=== PATIENT | male | born 1950 | race African-American/Black ===

== ENCOUNTER 2019-02-16 10:17 | Inpatient (IN) | payer OTHER | END 2019-02-25 18:12 | disposition home health service (06) | LOC: CENTRAL 02-25 05:42 → ER 10:17 → TELE 10:18 → TELE-CENTR 18:51 | PROC: 0W993ZZ Drainage of Right Pleural Cavity, Percutaneous Approach (ICD-10-PCS; principal; ~2019-02-16) | DX: I50.33 Acute on chronic diastolic (congestive) heart failure (principal); N17.0 Acute kidney failure with tubular necrosis; I13.0 Hypertensive heart and chronic kidney disease with heart failure and stage 1 through stage 4 chronic kidney disease, or unspecified chronic kidney disease; E87.0 Hyperosmolality and hypernatremia; N18.4 Chronic kidney disease, stage 4 (severe); E11.22 Type 2 diabetes mellitus with diabetic chronic kidney disease; N28.1 Cyst of kidney, acquired; D64.9 Anemia, unspecified; F41.9 Anxiety disorder, unspecified; R31.0 Gross hematuria ==

== ENCOUNTER 2019-02-27 13:28 | Inpatient (IN) | payer OTHER ==
[~2019-02-27] VITALS: Ht 175.3 cm; Wt 95.2 kg
[~2019-02-27 13:28] MED LIST: ALPR1TAB2 PO; AMLO5TAB15 PO; DOXYCYCLINE 100MG/250ML 250 ML IV SCH; FURO1TAB33 PO; GLIP5TAB12 PO; METO25TA5 PO; MIN25T PO; MONT10TA34 PO
[2019-02-27] MEDS ORDERED: FUROSEMIDE 40 MG/4 ML VIAL IV ONE ×2 (14:45→21:00)
[2019-02-27] MEDS ORDERED: MORPHINE SULF INJ 2 MG/ML SYRINGE 1ML IV ONE (15:00)
[2019-02-27 15:33] LABS: Basophils # (auto) 0.1 uL; Eosinophils # (auto) 0.5 uL; Hemoglobin 12.7 g/dL (13.5-17.5); Monocytes # (auto) 0.7 uL; Nucleated Red Blood Cells % 0.1 %; White Blood Cell 4.7 10^3/uL (4.4-10.8)
[2019-02-27 15:35] LABS: Basophils % (auto) 1.5 % (0.0-2.0); Eosinophils % (auto) 11.6 % (0.0-7.0); Hematocrit 40.3 % (41.0-53.0); Lymphocytes # (auto) 0.7 uL; Lymphocytes % (auto) 15.4 % (10.0-50.0); Mean Corpuscular Hemoglobin 26.4 pg (28.0-32.0); Mean Corpuscular Hgb Conc. 31.5 g/dL (32.0-36.0); Mean Corpuscular Volume 83.9 fL (80.0-100.0); Monocytes % (auto) 14.7 % (0.0-12.0); Neutrophils # (auto) 2.7 uL; Neutrophils % (auto) 56.8 % (37.0-80.0); Platelet Count (auto) 243 10^3/uL (140-450); Red Cell Distribution Width 14.7 % (11.8-14.3)
[2019-02-27 15:48] LABS: Albumin 2.6 g/dL (3.4-5.0); Anion Gap 5 (5-15); Blood Urea Nitrogen 56 mg/dL (7-18); Calcium 8.6 mg/dL (8.5-10.1); Carbon Dioxide 29 mmol/L (21-32); Chloride 112 mmol/L (98-107); Glucose 80 mg/dL (74-106); Potassium 4.4 mmol/L (3.5-5.1); Sodium 146 mmol/L (136-145)
[2019-02-27 15:53] LABS: INR 0.93 (0.9-1.15); Partial Thromboplastin Time 32.2 sec (23.64-32.05)
[2019-02-27 15:54] LABS: Alanine Aminotransferase 38 U/L (16-61); Alkaline Phosphatase 74 U/L (45-117); Aspartate Aminotransferase 35 U/L (15-37); BUN/Creatinine Ratio 16.7; Bilirubin, Total 0.2 mg/dL (0.2-1.0); GFR African American 24 mL/min; GFR Non-African American 20 mL/min
[2019-02-27] MEDS ORDERED: AZITHROMYCIN 500MG/ 250ML 250 ML IV ONE (17:15)
[2019-02-27] MEDS ORDERED: cefTRIAXone 1GM/50ML D5W 50 ML IV ONE (17:15)
[2019-02-27 17:42] LABS: Urine Bacteria FEW /hpf (None Seen); Urine Blood 3+ /uL (Negative); Urine Mucus FEW (None Seen); Urine WBC 30 /hpf (0 - 3)
[2019-02-27] MEDS ORDERED: ALBUTEROL SULF 2.5 MG/0.5ML(0.5%) NEB SOLN NEB PRN (21:00)
[2019-02-27] MEDS ORDERED: DOCUSATE SOD 100 MG CAP PO PRN (21:00)
[2019-02-27] MEDS ORDERED: TEMAZEPAM 15 MG CAP PO PRN (21:00)
[2019-02-27] MEDS ORDERED: ONDANSETRON HCL 4 MG/2 ML VIAL IV PRN (21:00)
[2019-02-27] MEDS ORDERED: ACETAMINOPHEN 500 MG TAB PO PRN (21:00)
[2019-02-27] MEDS ORDERED: DEXTROSE (50%) 50ML SYRG IV PRN (21:15)
[2019-02-27] MEDS ORDERED: METOPROLOL TARTRATE 25 MG TAB PO SCH (22:00)
[2019-02-27] MEDS: InsuLIN REG 1unit/0.01ml Soln (100units/ml) SC SCH (22:00)
[2019-02-27] MEDS: ACCU-CHEK COMFORT CURVE STRIP VI SCH (22:25)
[2019-02-27] MEDS: METOPROLOL TARTRATE 25 MG TAB PO SCH (22:26)
[2019-02-27] MEDS: MONTELUKAST SODIUM 10 MG TAB PO SCH (22:26)
--- NOTE | 2019-02-27 22:30 | NUR ---
Respiratory note: PT SEEN AND ASSESSED FOR PRN MED NEB TX AT 2230 IN ER BED 19. TX NOT INDICATED AT THIS TIME. PT DENIES ANY SOB AND STATED HIS BREATHING FELT GOOD. BREATH SOUNDS WERE DIMINISHED BILATERALLY. PT AWARE TO CALL FOR RT IF ANY DISTRESS OCCURS. HR 101 RR 16 POX 98% ON 2L NASAL CANNULA.
--- NOTE | 2019-02-27 23:00 | NUR ---
PATIENT ADMITTED TO UNIT Patient admitted to unit from ER via stretcher. Patient was safely transferred to bed. Patient is receiving 2L O2 via N.C. Patient is A&O X's 4 with no s/s of distress noted. Educated patient on POC/oriented patient to unit (call light/TV/phone/visiting hours)/ and to use call light when in need of any assistance. Patient verbalized understanding. Hitchcock is in place. No kinks noted. It is hanging below level of bladder. Bed is in lowest/locked position with side rails up X's 2 and call light is within reach of patient. He is Tele box #6. Will continue to monitor for changes and round hourly/PRN. All questions answered at this time. Called and spoke to his Jessica-, she was updated on POC and all questions were answered.
[2019-02-28] VITALS (8 sets, daily range): BP systolic 125–147; BP diastolic 67–86
--- NOTE | 2019-02-28 00:29 | NUR ---
PAGED HOSPITALIST Patient c/o increased pain with movement to scrotum. Will page for pain medication.
--- NOTE | 2019-02-28 00:32 | NUR ---
RECEIVED CALL BACK FROM HOSPITALIST New orders given. Will implement
--- NOTE | 2019-02-28 02:39 | NUR ---
[facility] SWAB Sent via bullet system
[2019-02-28] MEDS: PANTOPRAZOLE 40 MG TAB PO SCH (06:09)
--- NOTE | 2019-02-28 06:30 | NUR ---
LOW BLOOD GLUCOSE it was at 47. Patient was asymptomatic. He said that this happens to him a lot but it may because he did not eat a lot yesterday down in the ER. He is A&O X's 4. No distress noted. He was given cranberry and apple juice and a sandwich. will recheck blood glucose
[2019-02-28] MEDS: InsuLIN REG 1unit/0.01ml Soln (100units/ml) SC SCH ×4 (06:55→21:34)
[2019-02-28] MEDS: ACCU-CHEK COMFORT CURVE STRIP VI SCH ×4 (06:55→22:00)
[2019-02-28 06:57] LABS: Basophils # (auto) 0.1 uL; Eosinophils # (auto) 0.5 uL; Eosinophils % (auto) 10.3 % (0.0-7.0); Hemoglobin 11.7 g/dL (13.5-17.5); Neutrophils # (auto) 2.6 uL
--- NOTE | 2019-02-28 06:58 | NUR ---
BLOOD GLUCOSE RECHECK 86
[2019-02-28 06:59] LABS: Basophils % (auto) 1.3 % (0.0-2.0); Hematocrit 37.2 % (41.0-53.0); Mean Corpuscular Hemoglobin 26.3 pg (28.0-32.0); Mean Corpuscular Hgb Conc. 31.6 g/dL (32.0-36.0); Mean Corpuscular Volume 83.2 fL (80.0-100.0); Monocytes # (auto) 0.9 uL; Monocytes % (auto) 17.1 % (0.0-12.0); Neutrophils % (auto) 52.3 % (37.0-80.0); Nucleated Red Blood Cells % 0.1 %; Platelet Count (auto) 252 10^3/uL (140-450); Red Blood Cells 4.47 10^6/uL (4.5-5.90); Red Cell Distribution Width 14.9 % (11.8-14.3)
[2019-02-28 07:16] LABS: BUN/Creatinine Ratio 16.7; Calcium 8.5 mg/dL (8.5-10.1); Potassium 4.2 mmol/L (3.5-5.1)
--- NOTE | 2019-02-28 07:30 | NUR ---
Opening Shift Note Assumed care of patient, awake and alert. No S/S of distress/SOB or pain. Instructed on POC and to call for assist PRN, will continue to monitor for changes Q1hr and PRN. Bed in low and locked position, rails up x3, no-slip socks on.
[2019-02-28] MEDS ORDERED: cefTRIAXone 1GM/50ML D5W 50 ML IV SCH (09:00)
[2019-02-28] MEDS: METOPROLOL TARTRATE 25 MG TAB PO SCH ×2 (09:20→22:00)
[2019-02-28] MEDS: amLODIPine BESYLATE 5 MG TAB PO SCH (09:20)
[2019-02-28] MEDS: LEVOFLOXACIN 500MG 100 ML IV SCH (09:21)
[2019-02-28] MEDS ORDERED: FUROSEMIDE 40 MG/4 ML VIAL IV SCH (10:00)
--- NOTE | 2019-02-28 10:45 | NUR ---
DR DAY AT BEDSIDE
--- NOTE | 2019-02-28 11:54 | NUR ---
Respiratory note: PATIENT ASSESS FOR PRN MED-NEB TX; MED-NEB NOT INDICATED AT THIS TIME PATIENT DENIES NEED AND IS SHOWING NO SIGNS OF RESPIRATORY DISTRESS. HE WAS INSTRUCTED TO CALL FOR RT IF HE FELT THE NEED FOR TX AT A LATER TIME.
[2019-02-28] MEDS: ALBUMIN 25% 100 ML IV SCH ×2 (13:00→14:01)
[2019-02-28] MEDS: HYDROcodone-ACET 5/325MG TAB PO PRN (13:58)
--- NOTE | 2019-02-28 15:00 | NUR ---
DR JOSEPH AT BEDSIDE NEW CONSULTS ADDED
--- NOTE | 2019-02-28 15:35 | NUR ---
PAUL CARDONA AT BEDSIDE
[2019-02-28] MEDS: ALPRAZolam 0.5 MG TAB PO PRN (16:31)
[2019-02-28] MEDS: BUMETANIDE 1mg/4ml VIAL (0.25mg/ml) IV SCH (17:49)
--- NOTE | 2019-02-28 18:39 | NUR ---
Respiratory note: NO PRN TX GIVEN AT THIS TIME, NOT INDICATED. PT DENIES SOB, STATES HE TAKES INHALERS AT HOME NEEDED. SPO2 96% ON 2L N/C, HR HR 95, HR 18. PT AWARE TO CALL IF HE BECOMES SOB.
--- NOTE | 2019-02-28 20:35 | NUR ---
PATIENT REQUESTS TO BE CHANGED FROM ROOM. PATIENT STATES THAT HE HEARD PATIENT IN BED B TALKING WITH SOMEONE ON THE PHONE AND THAT HE OVERHEARD THAT PATIENT B HAS PNA. PATIENT A WAITED FOR PATIENT B TO FINISH TALKING ON THE PHONE AND ASKED HIM IF HE HAS PNA AND PATIENT B CONFIRMED THAT HE HAS PNA. PATIENT A IS UPSET THAT HE IS IN THE SAME ROOM A PATIENT WITH A CONTAGIOUS DISEASE AND WANTS TO BE CHANGED ROOMS. PER CHARGE NURSE RADHA IS IT IS OK CHANGE PATIENT A TO DIFFERENT ROOM IF AVAILABLE.
--- NOTE | 2019-02-28 20:46 | NUR ---
PATIENT TRANSFERRED TO ROOM 245 B PATIENT ASKING NURSE [employer]ION[employer] SYSTEMS TECHNICIAN NADEGE DURING TRANSFER IF SHE IS AWARE OF THE HEALTH CONDITIONS IN ROOM 245A. NADEGE DIRECTED HIM TO ASK HIS PRIMARY RN. I INFORMED PATIENT THAT PATIENTS WITH CONTAGIOUS INFECTIONS ARE ISOLATED.
[2019-02-28] MEDS: MONTELUKAST SODIUM 10 MG TAB PO SCH (22:00)
--- NOTE | 2019-03-01 00:23 | NUR ---
BLOOD SUGAR CHECK PER PATIENT REQUEST. BS 95. PATIENT STATED THAT HE IS NOT FEELING SIGNS OF LOW OR HIGH BLOOD SUGAR BUT STATES THAT HE IS NERVOUS THAT HIS BLOOD SUGAR WILL DROP IN HIS SLEEP. PATIENT AGREED TO TRY TO SLEEP AND RELAX AND WILL RECHECK HIS SUGAR AT 0400.
[2019-03-01 05:00] VITALS: BP_SYST 122; BP_DIAS 72; BP_DIAS 77
[2019-03-01] MEDS: InsuLIN REG 1unit/0.01ml Soln (100units/ml) SC SCH ×4 (05:34→22:00)
[2019-03-01] MEDS: ACCU-CHEK COMFORT CURVE STRIP VI SCH ×4 (05:34→22:04)
--- NOTE | 2019-03-01 05:50 | NUR ---
Respiratory note: ROUTINE PRN TX ASSESSMENT. HR 81, RR 20, POX 97% ON RA, BREATH SOUNDS ARE CLEAR. NO SOB OR DISTRESS NOTED. PT WAS NOTIFY TO HAVE RT PAGE FOR MN TX.
[2019-03-01] MEDS: PANTOPRAZOLE 40 MG TAB PO SCH (06:31)
[2019-03-01] MEDS: BUMETANIDE 1mg/4ml VIAL (0.25mg/ml) IV SCH ×2 (06:31→17:57)
--- NOTE | 2019-03-01 07:02 | NUR ---
CLOSING NOTE NOC SHIFT PATIENT IS COMFORTABLE IN BED, NO S/SX OF DISTRESS, SOB OR PAIN. PATIENT REQUESTING FUN[employer] CREAM FOR ITCH IN LOWER LEGS; WILL ENDORSE TO DAY SHIFT NURSE.
--- NOTE | 2019-03-01 07:20 | NUR ---
Opening Shift Note Assumed care of patient, awake and alert. No S/S of distress/SOB or pain. Instructed on POC and to call for assist PRN, will continue to monitor for changes Q1hr and PRN. Bed locked in lowest position with two side rails up and call light in reach.
[2019-03-01 07:24] LABS: Hematocrit 35.8 % (41.0-53.0); Hemoglobin 11.3 g/dL (13.5-17.5); Mean Corpuscular Hemoglobin 26.1 pg (28.0-32.0); Mean Corpuscular Hgb Conc. 31.4 g/dL (32.0-36.0); Platelet Count (auto) 237 10^3/uL (140-450); Red Blood Cells 4.31 10^6/uL (4.5-5.90); Red Cell Distribution Width 14.6 % (11.8-14.3); White Blood Cell 4.7 10^3/uL (4.4-10.8)
[2019-03-01 07:27] LABS: Basophils % (manual) 0 (0.0-2.0); Blast Cells 0; Myelocytes % 0; Promyelocytes % 0; Reactive Lymphocytes 0
[2019-03-01 07:31] LABS: Calcium 8.1 mg/dL (8.5-10.1); Potassium 4.3 mmol/L (3.5-5.1)
[2019-03-01 07:35] LABS: Magnesium 2.6 mg/dL (1.6-2.6)
[2019-03-01 08:00] VITALS: BP 136/76
--- NOTE | 2019-03-01 09:30 | NUR ---
DR BEASLEY ROUNDING, ALL QUESTIONS ANS CONCERNS ANSWERED.
[2019-03-01] MEDS: LEVOFLOXACIN 500MG 100 ML IV SCH (10:19)
[2019-03-01] MEDS: amLODIPine BESYLATE 5 MG TAB PO SCH (10:19)
[2019-03-01] MEDS: METOPROLOL TARTRATE 25 MG TAB PO SCH ×2 (10:20→22:03)
[2019-03-01] MEDS: ALPRAZolam 0.5 MG TAB PO PRN (10:29)
[2019-03-01] MEDS ORDERED: METOLAZONE 5 MG TAB PO ONE (11:00)
[2019-03-01] MEDS: HYDROcodone-ACET 5/325MG TAB PO PRN (12:32)
[2019-03-01 13:00] VITALS: BP 147/81
[2019-03-01 13:28] LABS: Band Neutrophils % (manual) 1; Eosinophils % (manual) 7 (0-7); Lymphocytes % (manual) 28 (10.0-50.0); Metamyelocytes % 1; Monocytes % (manual) 17 (0-12)
--- NOTE | 2019-03-01 14:00 | NUR ---
PT DECLINED P.T. BECAUSE OF PAIN AND SWELLING.
--- NOTE | 2019-03-01 15:20 | NUR ---
SPOKE TO PT JOSE DE JESUS And patient refused PT earlier, due to swelling. Per Jose De Jesus hew will go back in and re assess and let me know what the result is.
[2019-03-01 17:00] VITALS: BP 144/81
--- NOTE | 2019-03-01 20:00 | NUR ---
URINE SENT TO LAB FOR PROTEIN CREATININE ORDER.
--- NOTE | 2019-03-01 21:20 | NUR ---
Respiratory note: PT ASSESSED FOR PRN MED NEB TX. HR 79, RR 16, SPO2 96% ON 2L NC. NO SIGNS OF ANY RESPIRATORY DISTRESS NOTED. ADVISED PT TO CALL IF TX IS NEEDED.
[2019-03-01 21:43] LABS: Protein, Urine 92.5 mg/dL (0.0-11.9)
[2019-03-01 21:58] VITALS: BP 135/82
[2019-03-01] MEDS: MONTELUKAST SODIUM 10 MG TAB PO SCH (22:03)
[2019-03-01 23:52] LABS: Calcium 8.2 mg/dL (8.5-10.1); Potassium 4.3 mmol/L (3.5-5.1)
[2019-03-01 23:54] LABS: BUN/Creatinine Ratio 14.2
[2019-03-02 05:00] VITALS: BP 148/85
[2019-03-02] MEDS: PANTOPRAZOLE 40 MG TAB PO SCH (06:06)
[2019-03-02] MEDS: BUMETANIDE 1mg/4ml VIAL (0.25mg/ml) IV SCH (06:06)
[2019-03-02] MEDS: InsuLIN REG 1unit/0.01ml Soln (100units/ml) SC SCH ×5 (06:07→22:28)
[2019-03-02] MEDS: ACCU-CHEK COMFORT CURVE STRIP VI SCH ×4 (06:07→17:35)
[2019-03-02 06:27] LABS: Hemoglobin 11.2 g/dL (13.5-17.5)
[2019-03-02 06:29] LABS: Hematocrit 35.4 % (41.0-53.0); Mean Corpuscular Hemoglobin 26.4 pg (28.0-32.0); Mean Corpuscular Hgb Conc. 31.7 g/dL (32.0-36.0); Mean Corpuscular Volume 83.3 fL (80.0-100.0); Platelet Count (auto) 243 10^3/uL (140-450); Red Blood Cells 4.26 10^6/uL (4.5-5.90); Red Cell Distribution Width 14.6 % (11.8-14.3); White Blood Cell 5.4 10^3/uL (4.4-10.8)
[2019-03-02 06:30] LABS: Potassium 3.9 mmol/L (3.5-5.1)
[2019-03-02 06:41] LABS: Calcium 8.4 mg/dL (8.5-10.1); Magnesium 2.5 mg/dL (1.6-2.6)
[2019-03-02 06:49] LABS: Basophils % (manual) 0 (0.0-2.0); Blast Cells 0; Metamyelocytes % 0; Myelocytes % 0; Promyelocytes % 0; Reactive Lymphocytes 0
[2019-03-02] MEDS ORDERED: FUROSEMIDE INJECTION 500 MG in D5W 5% 450 ML IV SCH (07:15)
[2019-03-02 08:00] VITALS: BP 151/93
[2019-03-02 08:56] LABS: Band Neutrophils % (manual) 3; Lymphocytes % (manual) 20 (10.0-50.0)
[2019-03-02 08:57] LABS: Monocytes % (manual) 20 (0-12)
[2019-03-02 09:00] VITALS: BP 151/93
[2019-03-02 09:09] LABS: Eosinophils % (manual) 10 (0-7)
[2019-03-02] MEDS: amLODIPine BESYLATE 5 MG TAB PO SCH (09:23)
[2019-03-02] MEDS: METOLAZONE 5 MG TAB PO SCH (09:23)
[2019-03-02] MEDS: METOPROLOL TARTRATE 25 MG TAB PO SCH ×2 (09:24→22:23)
--- NOTE | 2019-03-02 09:42 | NUR ---
PATIENT AMBULATED WITH PT JERRY TO THE DOOR WAY AND BACK. PER JERRY PATIENT IS OK TO MAKE IT HOME.
[2019-03-02 10:58] LABS: BUN/Creatinine Ratio 14.1; Calcium 8.4 mg/dL (8.5-10.1); Potassium 4.1 mmol/L (3.5-5.1)
--- NOTE | 2019-03-02 11:10 | NUR ---
Respiratory note: PT ASSESSED FOR PRN MED NEB TX, NO TX DESIRED AT THIS TIME NOR INDICATED. PT DENIES SOB OR DIFF BREATHING, NO DISTRESS NOTED. HR 86 RR 16 SPO2 98% ON 2.5L N/C BREATH SOUNDS ARE DIMINISHED T/O. PT AND RN AWARE TO HAVE RT PAGED IF NEEDED.
--- NOTE | 2019-03-02 12:41 | NUR ---
Nutrition Assessment Notes please see attached link for complete assessment Est. Needs IBW [id number] kcal (25-30 kcal/kgBW), 57-72 gms pro (0.8-1.0 gms/kgBW r/t elev RFT CKD). Will continue to monitor pertinent labs and reassess nutrient need prn. Will reassess per dry body wt Addendum: 03/02/19 at [address] Amended: Links added.
[2019-03-02 13:00] VITALS: BP 93/70
--- NOTE | 2019-03-02 18:06 | NUR ---
OUTPUT TOTAL URINE 2700 ML X 2 = 5400 ML
--- NOTE | 2019-03-02 19:50 | NUR ---
Opening Shift Note Assumed care of patient, awake and alert. No S/S of distress/SOB or pain. Insructed on POC and to callfor assist PRN, will continue to monitor for changes Q1hr and PRN. Addendum: 03/02/19 at 2142 by Hallie Hayden RN RN Opening Shift Note Assumed care of patient, alert and oriented x 4. Patient on bedrest, mercado catheter patent and draining. On 2L oxygen via nasal cannula PRN. No S/S of distress/SOB. Patient reported pain level of 10/10. Bed in lowest locked position, side rails up x 2, call light within reach. Instructed on POC and to call for assist PRN, will continue to monitor for changes Q1hr and PRN.
[2019-03-02 20:00] VITALS: BP 158/86
[2019-03-02] MEDS: HYDROcodone-ACET 5/325MG TAB PO PRN (20:21)
[2019-03-02 22:00] VITALS: BP 158/86
[2019-03-02] MEDS: MONTELUKAST SODIUM 10 MG TAB PO SCH (22:23)
[2019-03-02 22:24] LABS: BUN/Creatinine Ratio 15.2; Calcium 8.1 mg/dL (8.5-10.1); Potassium 3.5 mmol/L (3.5-5.1)
--- NOTE | 2019-03-02 22:57 | NUR ---
Respiratory note: PT ASSESSED FOR PRN MED NEB TX. PT DENIES ANY SOB AT THIS TIME. B/S ARE DIM. SPO2 98% ON 2L, HR 71, RR 18. PT INFORMED TO HAVE RT PAGED IF NEEDED.
[2019-03-03] VITALS (7 sets, daily range): BP systolic 133–163; BP diastolic 79–97
[2019-03-03] MEDS: ACCU-CHEK COMFORT CURVE STRIP VI SCH ×4 (06:33→21:59)
[2019-03-03] MEDS: InsuLIN REG 1unit/0.01ml Soln (100units/ml) SC SCH ×4 (06:33→22:00)
[2019-03-03] MEDS: PANTOPRAZOLE 40 MG TAB PO SCH (06:33)
[2019-03-03 06:35] LABS: Basophils # (auto) 0.1 uL; Hemoglobin 12.2 g/dL (13.5-17.5); Lymphocytes # (auto) 1.2 uL; Platelet Count (auto) 263 10^3/uL (140-450)
[2019-03-03 06:40] LABS: Basophils % (auto) 0.9 % (0.0-2.0); Eosinophils # (auto) 0.6 uL; Eosinophils % (auto) 9.3 % (0.0-7.0); Hematocrit 38.4 % (41.0-53.0); Lymphocytes % (auto) 20.1 % (10.0-50.0); Mean Corpuscular Hemoglobin 26.1 pg (28.0-32.0); Mean Corpuscular Hgb Conc. 31.8 g/dL (32.0-36.0); Monocytes # (auto) 1.1 uL; Monocytes % (auto) 17.6 % (0.0-12.0); Neutrophils # (auto) 3.2 uL; Neutrophils % (auto) 52.1 % (37.0-80.0); Red Blood Cells 4.68 10^6/uL (4.5-5.90); Red Cell Distribution Width 14.3 % (11.8-14.3); White Blood Cell 6.1 10^3/uL (4.4-10.8)
--- NOTE | 2019-03-03 06:47 | NUR ---
Closing shift note Patient resting in bed. No acute S/S of distress, SOB or pain. Will endorse care to dayshift ASHER Lee.
--- NOTE | 2019-03-03 09:43 | NUR ---
Respiratory note: ASSESSED PT FOR PRN MEDNEB TX. HR 82, RR 16, POX 99% ON 3L NC. BREATH SOUNDS CLEAR/DIMINISHED THROUGHOUT. NO S/S OF RESPIRATORY DISTRESS. MEDNEB TX NOT INDICATED AT THIS TIME. WROTE RT NAME AND PAGER NUMBER ON WHITEBOARD. ADVISED PT TO CALL FOR RT IF NEEDED. STUDENT NURSE AT BEDSIDE ALSO AWARE.
[2019-03-03] MEDS ORDERED: LEVOFLOXACIN 500MG 100 ML IV SCH (10:00)
[2019-03-03] MEDS: METOLAZONE 5 MG TAB PO SCH (10:10)
[2019-03-03] MEDS: METOPROLOL TARTRATE 25 MG TAB PO SCH ×2 (10:11→21:59)
[2019-03-03] MEDS: amLODIPine BESYLATE 5 MG TAB PO SCH (10:12)
[2019-03-03 10:20] LABS: Calcium 8.6 mg/dL (8.5-10.1); Potassium 3.4 mmol/L (3.5-5.1)
[2019-03-03 10:22] LABS: BUN/Creatinine Ratio 14.8
--- NOTE | 2019-03-03 13:00 | NUR ---
IV insertion IV access obtained, via clean sterile technique by inserting 20 gauge catheter at right forearm after 2 attempts. IV secured properly. No trauma to site. Patient tolerated procedure well.
[2019-03-03] MEDS: POTASSIUM CHL 20 Meq TABLET PO SCH ×2 (13:11→16:22)
[2019-03-03] MEDS ORDERED: METOLAZONE 5 MG TAB PO ONE (13:15)
--- NOTE | 2019-03-03 13:58 | NUR ---
Received consult to see pt. Pt was discharged two days ago. According to the Home Health went out to see pt. The nurse informed the pt and that the pt had to return back to the hospital. The pt states the swelling was extremely painful. The pt however now he is feeling better. Pt was given the option of going to a rehab or home. He refused rehab and went home instead. Pt's is the primary caregiver. P't daughter is a nurse and helps out when necessary. Pt can walk a few steps to the door and back. The would like to have Home Healthcare on discharge. Pt will most likely refuse rehab.
[2019-03-03] MEDS: FUROSEMIDE INJECTION 250 MG in D5W 5% 225 ML IV SCH (14:02)
--- NOTE | 2019-03-03 14:30 | NUR ---
Mercado catheter dc'd Order to discontinue mercado catheter. Mercado dc'd with clean technique following deflation of balloon. Patient tolerated well with no complaints of pain. Continue care.
[2019-03-03] MEDS: HYDROcodone-ACET 5/325MG TAB PO PRN ×2 (14:35→22:01)
--- NOTE | 2019-03-03 15:30 | NUR ---
Patient voided 50 ml clear yellow urine. Will continue to monitor.
--- NOTE | 2019-03-03 15:39 | NUR ---
assessment Patient will need a resumption order on discharge for [facility]. Addendum: 03/03/19 at 1540 by Jessica DEL CASTILLO Amended: Links added.
--- NOTE | 2019-03-03 19:30 | NUR ---
Opening Shift Note Assumed care of patient, alert and oriented x 4. Patient on 2L oxygen via nasal cannula. Ambulatory to bedside commode. No S/S of distress/SOB or pain. Bed in lowest locked position, side rails up x 2, call light within reach. Instructed on POC and to call for assist PRN, will continue to monitor for changes Q1hr and PRN.
[2019-03-03] MEDS: MONTELUKAST SODIUM 10 MG TAB PO SCH (21:59)
[2019-03-03 22:39] LABS: Calcium 8.4 mg/dL (8.5-10.1); Potassium 4.4 mmol/L (3.5-5.1)
[2019-03-03 22:41] LABS: BUN/Creatinine Ratio 14.6
[2019-03-04 04:30] VITALS: BP 153/93
[2019-03-04] MEDS: PANTOPRAZOLE 40 MG TAB PO SCH (06:32)
[2019-03-04] MEDS: InsuLIN REG 1unit/0.01ml Soln (100units/ml) SC SCH ×2 (06:32→11:30)
[2019-03-04] MEDS: ACCU-CHEK COMFORT CURVE STRIP VI SCH ×2 (06:32→11:30)
--- NOTE | 2019-03-04 06:53 | NUR ---
Closing Shift Note Patient resting in bed. No acute S/S of distress, SOB or pain noted. Bed in lowest locked position, side rails up x 2, call light within reach. Will endorse care to dayshift ASHER Mijares.
--- NOTE | 2019-03-04 07:50 | NUR ---
Opening Shift Note Assumed care of patient, awake and alert. No S/S of distress/SOB or pain. Instructed on POC and to call for assist PRN, will continue to monitor for changes Q1hr and PRN.
[2019-03-04 08:00] VITALS: BP 165/101
[2019-03-04] MEDS: amLODIPine BESYLATE 5 MG TAB PO SCH (09:51)
[2019-03-04] MEDS: METOPROLOL TARTRATE 25 MG TAB PO SCH (09:52)
[2019-03-04] MEDS: METOLAZONE 5 MG TAB PO SCH (09:52)
--- NOTE | 2019-03-04 10:00 | NUR ---
Urine output : 450 ml
[2019-03-04] MEDS: ALPRAZolam 0.5 MG TAB PO PRN (10:01)
--- NOTE | 2019-03-04 10:30 | NUR ---
Paged Dr. Gilmore paged re: clearance for discharge.
[2019-03-04 10:32] LABS: BUN/Creatinine Ratio 13.9; Potassium 3.6 mmol/L (3.5-5.1)
--- NOTE | 2019-03-04 10:40 | NUR ---
Respiratory note: ASSESSED PT FOR PRN MEDNEB TX. HR 82, RR 18, POX 96% ON 3L NC. BREATH SOUNDS CLEAR/DIMINISHED. NO S/S OF RESPIRATORY DISTRESS. MEDNEB TX NOT INDICATED AT THIS TIME. WROTE RT NAME AND PAGER NUMBER ON WHITEBOARD, ADVISED PT TO CALL FOR RT IF NEEDED.
[2019-03-04 11:51] VITALS: BP 131/75
[2019-03-04] MEDS: FUROSEMIDE INJECTION 250 MG in D5W 5% 225 ML IV SCH (12:00)
--- NOTE | 2019-03-04 12:57 | NUR ---
Repaged Dr. Gilmore re: discharge clearance
--- NOTE | 2019-03-04 12:58 | NUR ---
Dr. Gilmore called back. Dr. Gilmore states patient is cleared to go home.
[2019-03-04] MEDS ORDERED: BUME1TAB28 PO (13:45)
[2019-03-04] MEDS ORDERED: LEVO250T19 PO (13:45)
[2019-03-04] MEDS ORDERED: METO5TAB56 PO (13:45)
--- NOTE | 2019-03-04 14:00 | NUR ---
Contacted Jessica, patient's . Informed her that patient is being discharged today.
--- NOTE | 2019-03-04 14:19 | NUR ---
Per consult for home health safety evaluation and referral to [facility] program. Per Jessica manager nicu Yue will contact [facility] for the referral and authorization number. Contacted [facility] Ph: ) Fax: ) faxed medical records. Per Nancy to resume service for pt. Informed Pt with information about home health and provided him with agency name and phone number. Pt verbalize and agrees upon d/c plan. Informed ASHER Mijares that pt will resume service with [facility] and I provided home health information to Pt at bed side. Addendum: 03/04/19 at 1425 by JOSEPH CHIN Amended: Links added.
--- NOTE | 2019-03-04 14:28 | NUR ---
FAXED SS ORDER TO CHO[facility] REQUESTING AUTH FOR PAULO. WILL ALSO SPEAK WITH LOURDES GALVEZ CM FOR AUTH
--- NOTE | 2019-03-04 17:25 | NUR ---
Discharge instructions given as ordered. Encourage to follow up with PMD, Dr. Cartwright and Dr. Marinelli as instructed. All questions and concerns addressed. Patient verbalized understanding. Medication reconciliation form completed and copy given to patient. IV removed with catheter intact, pressure dressing applied. Telemetry unit returned to [facility]. Patient taken to vehicle via wheelchair with all personal belongings, accompanied by staff and family member. No distress noted at time of departure.
== END 2019-03-04 17:25 | disposition home health service (06) | DRG 682 ==
LOC: EDBD 13:28 → ER 13:28 → TELE 13:29 → TELE-EAST 22:57
PROVIDERS: ADMIT Nurse Practitioner Family; ATTEND Internal Medicine
DX: N17.9 Acute kidney failure, unspecified (principal); I50.43 Acute on chronic combined systolic (congestive) and diastolic (congestive) heart failure; N39.0 Urinary tract infection, site not specified; I13.0 Hypertensive heart and chronic kidney disease with heart failure and stage 1 through stage 4 chronic kidney disease, or unspecified chronic kidney disease; J91.8 Pleural effusion in other conditions classified elsewhere; N50.89 Other specified disorders of the male genital organs; N18.4 Chronic kidney disease, stage 4 (severe); E11.22 Type 2 diabetes mellitus with diabetic chronic kidney disease; N43.3 Hydrocele, unspecified; K57.30 Diverticulosis of large intestine without perforation or abscess without bleeding; N28.1 Cyst of kidney, acquired; J44.9 Chronic obstructive pulmonary disease, unspecified; E78.5 Hyperlipidemia, unspecified; N13.9 Obstructive and reflux uropathy, unspecified; T50.2X5A Adverse effect of carbonic-anhydrase inhibitors, benzothiadiazides and other diuretics, initial encounter; Z79.899 Other long term (current) drug therapy; Z82.49 Family history of ischemic heart disease and other diseases of the circulatory system; Z87.891 Personal history of nicotine dependence; Z91.19 Patient's noncompliance with other medical treatment and regimen
CPT/HCPCS: 36415; 51702; 71045; 74176; 76870; 80048; 80053; 81001; 82570; 82962; 83605; 83735; 83880; 84156; 84484; 85007; 85025; 85027; 85610; 85730; 87040; 87081; 87086; 96365; 96368; 96375; 96376; 97110; 97116; 97163; 97530; G0378; J0696; J1815; J1956; J7060; P9047

== ENCOUNTER 2023-01-29 10:23 | Inpatient (IN) | payer OTHER, MEDICAID ==
[2023-01-29] VITALS (7 sets, daily range): BP systolic 102–118; BP diastolic 42–60
[~2023-01-29] VITALS: Ht 167.6 cm; Wt 83.7 kg
[~2023-01-29 10:23] MED LIST changes: +AMLO1TAB22 PO; -AMLO5TAB15 PO; +BUME1TAB28 PO; -DOXYCYCLINE 100MG/250ML 250 ML IV SCH; -FURO1TAB33 PO; +LEVO250T19 PO; +METO5TAB5 PO; +MONT-8 PO; -MONT10TA34 PO
[2023-01-29] MEDS ORDERED: SODIUM CHLORIDE 0.9% 500 ML IVB ONE (10:45)
[2023-01-29 11:25] LABS: Basophils # (auto) 0 10 ^3/uL (0-0.2); Eosinophils # (auto) 0 10 ^3/uL (0-0.8); Lymphocytes # (auto) 1.3 10 ^3/uL (0.4-5.4); Monocytes # (auto) 1.4 10 ^3/uL (0-1.3)
[2023-01-29 11:28] LABS: Basophils % (auto) 0.1 % (0.0-2.0); Hematocrit 19.1 % (41.0-53.0); Lymphocytes % (auto) 7.2 % (10.0-50.0); Mean Corpuscular Hemoglobin 26.1 pg (28.0-32.0); Mean Corpuscular Hgb Conc. 30.6 g/dL (32.0-36.0); Mean Corpuscular Volume 85.2 fL (80.0-100.0); Monocytes % (auto) 7.4 % (0.0-12.0); Neutrophils # (auto) 15.9 10 ^3/uL (1.6-8.6); Neutrophils % (auto) 85.3 % (37.0-80.0); Red Blood Cells 2.24 10^6/uL (4.5-5.90); Red Cell Distribution Width 16.6 % (11.8-14.3); White Blood Cell 18.6 10^3/uL (4.4-10.8)
[2023-01-29 11:44] LABS: Albumin 1.8 g/dL (3.4-5.0); Calcium 7.2 mg/dL (8.5-10.1); Potassium 4.8 mmol/L (3.5-5.1)
[2023-01-29 11:46] LABS: BUN/Creatinine Ratio 8.9 (10.0-20.0); Bilirubin, Total 0.3 mg/dL (0.2-1.0); Total Protein 4.4 g/dL (6.4-8.2)
[2023-01-29 11:47] LABS: Hemoglobin 5.8 g/dL (13.5-17.5)
[2023-01-29 12:50] LABS: INR 1.34 (0.9-1.15); Partial Thromboplastin Time 36.1 SEC (24.5-34.5)
[2023-01-29] MEDS ORDERED: MORPHINE SULFATE INJ 2 MG/ml SYRG IV PRN (19:45)
[2023-01-29] MEDS ORDERED: ONDANSETRON HCL 4 MG/2 ML VIAL IV PRN (19:45)
[2023-01-29] MEDS ORDERED: ACETAMINOPHEN 325 MG TAB PO PRN (19:45)
[2023-01-29] MEDS: SODIUM CHLORIDE 0.9% 1,000 ML IV SCH (19:45)
[2023-01-29] MEDS ORDERED: NITROGLYCERIN 0.4 MG SL TAB SL PRN (19:45)
[2023-01-29] MEDS ORDERED: DEXTROSE (50%) 50ML SYRG IV PRN (20:15)
[2023-01-29 22:11] LABS: Hemoglobin 7.8 g/dL (13.5-17.5); White Blood Cell 26.8 10^3/uL (4.4-10.8)
[2023-01-29 22:12] LABS: Hematocrit 24.1 % (41.0-53.0); Mean Corpuscular Hemoglobin 28.3 pg (28.0-32.0); Mean Corpuscular Hgb Conc. 32.6 g/dL (32.0-36.0); Red Blood Cells 2.77 10^6/uL (4.5-5.90)
[2023-01-29 22:14] LABS: Band Neutrophils % (manual) 0; Basophils % (manual) 0 (0.0-2.0); Blast Cells 0; Eosinophils % (manual) 0 (0-7); Metamyelocytes % 0; Monocytes % (manual) 0 (0-12); Myelocytes % 0; Promyelocytes % 0; Reactive Lymphocytes 0
[2023-01-29 22:59] LABS: Lymphocytes % (manual) 4 (10.0-50.0)
[2023-01-30] MEDS: InsuLIN REG 1unit/0.01ml Soln (100units/ml) SC SCH ×5 (00:35→23:55)
[2023-01-30] MEDS: ACCU-CHEK COMFORT CURVE STRIP VI SCH ×5 (05:56→23:55)
[2023-01-30 06:35] LABS: Potassium 5.4 mmol/L (3.5-5.1)
[2023-01-30 06:42] LABS: Albumin 2.1 g/dL (3.4-5.0); BUN/Creatinine Ratio 9.5 (10.0-20.0); Bilirubin, Total 0.4 mg/dL (0.2-1.0); Calcium 7.2 mg/dL (8.5-10.1); Total Protein 4.7 g/dL (6.4-8.2)
[2023-01-30 06:51] LABS: Basophils # (auto) 0 10 ^3/uL (0-0.2); Basophils % (auto) 0.1 % (0.0-2.0); Eosinophils # (auto) 0 10 ^3/uL (0-0.8); Hemoglobin 8.1 g/dL (13.5-17.5); Monocytes # (auto) 1.2 10 ^3/uL (0-1.3); Monocytes % (auto) 5.8 % (0.0-12.0)
[2023-01-30 06:54] LABS: Hematocrit 25.6 % (41.0-53.0); Lymphocytes # (auto) 1.4 10 ^3/uL (0.4-5.4); Lymphocytes % (auto) 6.9 % (10.0-50.0); Mean Corpuscular Hemoglobin 28.4 pg (28.0-32.0); Mean Corpuscular Hgb Conc. 31.7 g/dL (32.0-36.0); Mean Corpuscular Volume 89.4 fL (80.0-100.0); Neutrophils % (auto) 87.2 % (37.0-80.0); Red Blood Cells 2.86 10^6/uL (4.5-5.90); Red Cell Distribution Width 15.7 % (11.8-14.3); White Blood Cell 20.7 10^3/uL (4.4-10.8)
[2023-01-30] MEDS: cefTRIAXone 1GM/50ML D5W 50 ML IV SCH (09:46)
[2023-01-30] MEDS: metroNIDAZOLE 500MG/100ML 100 ML IV SCH ×2 (14:32→22:56)
[2023-01-30] MEDS: SODIUM CHLORIDE 0.9% 1,000 ML IV SCH (16:31)
[2023-01-31 00:20] VITALS: BP 119/67
[2023-01-31] MEDS ORDERED: BUDE1AER4 IN (03:11)
[2023-01-31] MEDS ORDERED: FLUT110A INH (03:12)
[2023-01-31] MEDS ORDERED: ALBU0.084 IN (03:13)
[2023-01-31 05:00] VITALS: BP 120/78
[2023-01-31] MEDS: metroNIDAZOLE 500MG/100ML 100 ML IV SCH ×3 (05:41→21:54)
[2023-01-31] MEDS: InsuLIN REG 1unit/0.01ml Soln (100units/ml) SC SCH (06:00)
[2023-01-31] MEDS ORDERED: DEXTROSE 10% 250 ML IV ONE ×2 (06:27→22:56)
[2023-01-31] MEDS ORDERED: SODIUM CHL 0.9% 1000 ML BAG XX ONE (07:00)
[2023-01-31] MEDS: ACCU-CHEK COMFORT CURVE STRIP VI SCH ×3 (07:09→22:53)
[2023-01-31 08:42] LABS: Urine Bacteria NONE SEEN /hpf (None Seen); Urine Blood Negative /uL (Negative); Urine WBC 9 /hpf (0 - 3)
[2023-01-31 09:00] VITALS: BP 141/48
[2023-01-31] MEDS: cefTRIAXone 1GM/50ML D5W 50 ML IV SCH (09:00)
[2023-01-31] MEDS: ALBUTEROL SULF 2.5 MG/0.5ML(0.5%) NEB SOLN NEB SCH ×4 (10:04→22:00)
[2023-01-31] MEDS: IPRATROPIUM BROM 0.5 MG/2.5ML INH SOL NEB SCH ×4 (10:04→22:00)
[2023-01-31 11:22] VITALS: BP 140/49
[2023-01-31] MEDS: SODIUM CHLORIDE 0.9% 1,000 ML IV SCH (11:45)
[2023-01-31] MEDS ORDERED: AMIO200T13 PO (12:05)
[2023-01-31] MEDS ORDERED: METR-344 PO (12:05)
[2023-01-31] MEDS ORDERED: HYDR-4297 PO (12:05)
[2023-01-31] MEDS ORDERED: ATOR20TA50 PO ×2 (12:05→12:19)
[2023-01-31] MEDS ORDERED: CARV6.2551 PO (12:06)
[2023-01-31] MEDS ORDERED: SULF400T11 PO (12:06)
[2023-01-31] MEDS ORDERED: GUAI100S6 PO (12:19)
[2023-01-31] MEDS ORDERED: MINO2.5T2 PO (12:19)
[2023-01-31] MEDS ORDERED: FURO20TA3 PO (12:19)
[2023-01-31] MEDS ORDERED: B-COCAP23 PO (12:19)
[2023-01-31] MEDS ORDERED: APIX5TAB PO (12:19)
[2023-01-31] MEDS ORDERED: NITR0.4S29 SL (12:19)
[2023-01-31] MEDS ORDERED: FERR325T20 PO (12:19)
[2023-01-31] MEDS ORDERED: LORA-1123 PO (12:19)
[2023-01-31] MEDS ORDERED: FURO40TA4 PO (12:19)
[2023-01-31] MEDS ORDERED: ASPI-543 PO (12:19)
[2023-01-31] MEDS ORDERED: PRED20TA2 PO (12:19)
[2023-01-31] MEDS ORDERED: DOCU-94 PO (12:19)
[2023-01-31] MEDS ORDERED: MONT-8 PO (12:19)
[2023-01-31] MEDS ORDERED: GLIP-204 PO (12:19)
[2023-01-31] MEDS ORDERED: BENZ100C97 PO (12:19)
[2023-01-31] MEDS ORDERED: MORP1INJ PO (12:19)
[2023-01-31] MEDS ORDERED: METO25TA5 PO (12:19)
[2023-01-31] MEDS ORDERED: TAMS0.4C36 PO (12:24)
[2023-01-31] MEDS ORDERED: SIME80CH49 PO (12:24)
[2023-01-31] MEDS ORDERED: SEVE800T8 PO (12:24)
[2023-01-31] MEDS ORDERED: PROM25TA10 PO (12:24)
[2023-01-31] MEDS ORDERED: PROP1TAB51 PO (12:24)
[2023-01-31] MEDS ORDERED: POTA-211 PO (12:24)
[2023-01-31] MEDS ORDERED: TEMA15CA2 PO (12:24)
[2023-01-31 12:43] VITALS: BP 146/64
[2023-01-31 13:32] LABS: Basophils # (auto) 0 10 ^3/uL (0-0.2); Eosinophils # (auto) 0 10 ^3/uL (0-0.8); Eosinophils % (auto) 0.1 % (0.0-7.0); Lymphocytes # (auto) 1.6 10 ^3/uL (0.4-5.4)
[2023-01-31 13:33] LABS: Albumin 2.2 g/dL (3.4-5.0); Calcium 6.8 mg/dL (8.5-10.1); Potassium 4.6 mmol/L (3.5-5.1)
[2023-01-31 13:35] LABS: Basophils % (auto) 0.2 % (0.0-2.0); Hematocrit 23.4 % (41.0-53.0); Hemoglobin 7.5 g/dL (13.5-17.5); Lymphocytes % (auto) 10.2 % (10.0-50.0); Mean Corpuscular Hemoglobin 27.8 pg (28.0-32.0); Mean Corpuscular Hgb Conc. 32.1 g/dL (32.0-36.0); Mean Corpuscular Volume 86.6 fL (80.0-100.0); Monocytes # (auto) 0.9 10 ^3/uL (0-1.3); Monocytes % (auto) 5.5 % (0.0-12.0); Neutrophils # (auto) 13.1 10 ^3/uL (1.6-8.6); Nucleated Red Blood Cells % 0.1 %; White Blood Cell 15.5 10^3/uL (4.4-10.8)
[2023-01-31 13:37] LABS: BUN/Creatinine Ratio 9.1 (10.0-20.0); Bilirubin, Total 0.3 mg/dL (0.2-1.0); Total Protein 4.4 g/dL (6.4-8.2)
[2023-01-31] MEDS ORDERED: DEXTROSE (50%) 50ML SYRG IV ONE (15:30)
[2023-01-31 16:45] VITALS: BP 102/53
[2023-01-31] MEDS ORDERED: D5W/SOD CHL 0.45% 1,000 ML IV SCH (19:00)
[2023-01-31] MEDS ORDERED: EPOETIN ALFA-EPBX 4,000 UNIT/ML VIAL SC ONE (21:00)
[2023-01-31 21:46] LABS: Eosinophils # (auto) 0 10 ^3/uL (0-0.8); Hematocrit 21.9 % (41.0-53.0); Lymphocytes # (auto) 0.9 10 ^3/uL (0.4-5.4); Mean Corpuscular Hgb Conc. 30.7 g/dL (32.0-36.0); Monocytes # (auto) 1.2 10 ^3/uL (0-1.3); Monocytes % (auto) 8.5 % (0.0-12.0); Neutrophils # (auto) 11.9 10 ^3/uL (1.6-8.6)
[2023-01-31 21:47] LABS: Basophils # (auto) 0.1 10 ^3/uL (0-0.2); Basophils % (auto) 0.4 % (0.0-2.0); Eosinophils % (auto) 0.1 % (0.0-7.0); Lymphocytes % (auto) 6.3 % (10.0-50.0); Neutrophils % (auto) 84.7 % (37.0-80.0); Red Blood Cells 2.41 10^6/uL (4.5-5.90); Red Cell Distribution Width 16.5 % (11.8-14.3)
[2023-01-31] MEDS: LORazepam 2MG/ML-1ML VIAL IV PRN (22:01)
[2023-01-31 22:08] LABS: Hemoglobin 6.7 g/dL (13.5-17.5)
[2023-01-31] MEDS: DEXTROSE (50%) 50ML SYRG IV PRN (23:11)
[2023-01-31 23:15] LABS: Potassium 4.5 mmol/L (3.5-5.1); Sodium 137 mmol/L (136-145)
[2023-01-31 23:16] LABS: Anion Gap 6 (5-15); BUN/Creatinine Ratio 8.5 (10.0-20.0); Blood Urea Nitrogen 54 mg/dL (7-18); Calcium 6.7 mg/dL (8.5-10.1); Carbon Dioxide 18 mmol/L (21-32); Chloride 113 mmol/L (98-107); GFR African American 11 mL/min; GFR Non-African American 9 mL/min; Glucose 53 mg/dL (74-106)
[2023-02-01] VITALS (17 sets, daily range): BP systolic 100–169; BP diastolic 60–97
[2023-02-01] MEDS: ALBUTEROL SULF 2.5 MG/0.5ML(0.5%) NEB SOLN NEB SCH ×5 (02:00→18:34)
[2023-02-01] MEDS: IPRATROPIUM BROM 0.5 MG/2.5ML INH SOL NEB SCH ×5 (02:00→18:34)
[2023-02-01] MEDS ORDERED: DEXTROSE 10% 250 ML IV ONE ×2 (04:10→06:15)
[2023-02-01] MEDS: DEXTROSE (50%) 50ML SYRG IV PRN (04:15)
[2023-02-01] MEDS: metroNIDAZOLE 500MG/100ML 100 ML IV SCH ×3 (06:08→22:31)
[2023-02-01] MEDS ORDERED: DEXTROSE 10% 1,000 ML IV SCH (06:15)
[2023-02-01] MEDS: ACCU-CHEK COMFORT CURVE STRIP VI SCH ×4 (06:49→22:13)
[2023-02-01 07:27] LABS: Albumin 1.2 g/dL (3.4-5.0); Potassium 3.9 mmol/L (3.5-5.1)
[2023-02-01 07:31] LABS: Bilirubin, Total 0.2 mg/dL (0.2-1.0); Total Protein 2.6 g/dL (6.4-8.2)
[2023-02-01 07:36] LABS: Calcium 5.5 mg/dL (8.5-10.1)
[2023-02-01 07:37] LABS: BUN/Creatinine Ratio 8.9 (10.0-20.0)
[2023-02-01] MEDS ORDERED: FUROSEMIDE 40 MG/4 ML VIAL IV ONE (09:45)
[2023-02-01] MEDS: DEXTROSE 10% 1,000 ML IV SCH ×2 (09:45→17:48)
[2023-02-01] MEDS: CALCIUM GLUC 1,000mg/50ml-NS 50 ML IV SCH ×2 (10:11→11:28)
[2023-02-01] MEDS ORDERED: TEMAZEPAM 15 MG CAP PO PRN (10:45)
[2023-02-01 11:05] LABS: Hematocrit 24.9 % (41.0-53.0); Hemoglobin 8.1 g/dL (13.5-17.5); Mean Corpuscular Hemoglobin 27.8 pg (28.0-32.0); Mean Corpuscular Hgb Conc. 32.6 g/dL (32.0-36.0); Mean Corpuscular Volume 85.4 fL (80.0-100.0); Red Blood Cells 2.91 10^6/uL (4.5-5.90); Red Cell Distribution Width 15.5 % (11.8-14.3); White Blood Cell 17.1 10^3/uL (4.4-10.8)
[2023-02-01 11:11] LABS: Band Neutrophils % (manual) 0; Basophils % (manual) 0 (0.0-2.0); Blast Cells 0; Metamyelocytes % 0; Myelocytes % 0; Promyelocytes % 0; Reactive Lymphocytes 0
[2023-02-01] MEDS: cefTRIAXone 1GM/50ML D5W 50 ML IV SCH (13:58)
[2023-02-01] MEDS: HEPARIN SODIUM (PORCINE) 5000 UNITS/ML 1ML VIAL SC SCH ×2 (14:00→22:00)
[2023-02-01] MEDS: TAMSULOSIN HYDROCHLORIDE 0.4 MG CAP PO SCH (14:47)
[2023-02-01 14:52] LABS: Eosinophils % (manual) 1 (0-7); Lymphocytes % (manual) 17 (10.0-50.0); Monocytes % (manual) 8 (0-12)
[2023-02-01] MEDS ORDERED: DEXTROSE 10% 250 ML Bag IV PRN (15:30)
[2023-02-01] MEDS ORDERED: LIDOCAINE 1% (LOCAL ANESTH.) PF 5ml SDV ID ONE (16:30)
[2023-02-01] MEDS: SODIUM CHLOR 0.9% PF (SALINE LOCK) 10ML VIAL/SYR IV SCH (17:48)
[2023-02-01] MEDS ORDERED: IPRATROPIUM BROM 0.5 MG/2.5ML INH SOL NEB SCH (22:15)
[2023-02-01] MEDS ORDERED: ALBUTEROL SULF 2.5 MG/0.5ML(0.5%) NEB SOLN NEB SCH (22:15)
[2023-02-01] MEDS: CARVEDILOL 3.125 MG TAB PO SCH (22:31)
[2023-02-01] MEDS: ATORVASTATIN 20 MG TAB PO SCH (22:31)
[2023-02-01] MEDS: LORazepam 2MG/ML-1ML VIAL IV PRN (22:32)
[2023-02-02] VITALS (30 sets, daily range): BP systolic 126–187; BP diastolic 56–84
[2023-02-02] MEDS ORDERED: IPRATROPIUM BROM 0.5 MG/2.5ML INH SOL NEB SCH (01:00)
[2023-02-02] MEDS: DEXTROSE 10% 1,000 ML IV SCH ×3 (04:21→21:00)
[2023-02-02] MEDS: HEPARIN SODIUM (PORCINE) 5000 UNITS/ML 1ML VIAL SC SCH (06:00)
[2023-02-02] MEDS: metroNIDAZOLE 500MG/100ML 100 ML IV SCH ×3 (06:00→21:31)
[2023-02-02] MEDS: IPRATROPIUM BROM 0.5 MG/2.5ML INH SOL NEB SCH ×4 (06:40→22:16)
[2023-02-02] MEDS: ALBUTEROL SULF 2.5 MG/0.5ML(0.5%) NEB SOLN NEB SCH ×4 (06:40→22:16)
[2023-02-02] MEDS: ACCU-CHEK COMFORT CURVE STRIP VI SCH ×4 (07:05→23:46)
[2023-02-02 07:25] LABS: Basophils # (auto) 0.1 10 ^3/uL (0-0.2); Eosinophils # (auto) 0.1 10 ^3/uL (0-0.8); Eosinophils % (auto) 0.5 % (0.0-7.0); Hematocrit 19.9 % (41.0-53.0); Red Blood Cells 2.32 10^6/uL (4.5-5.90); White Blood Cell 12.9 10^3/uL (4.4-10.8)
[2023-02-02 07:28] LABS: Basophils % (auto) 0.5 % (0.0-2.0); Lymphocytes # (auto) 1.9 10 ^3/uL (0.4-5.4); Lymphocytes % (auto) 14.9 % (10.0-50.0); Mean Corpuscular Hemoglobin 28.2 pg (28.0-32.0); Mean Corpuscular Hgb Conc. 32.9 g/dL (32.0-36.0); Mean Corpuscular Volume 85.7 fL (80.0-100.0); Monocytes # (auto) 1.7 10 ^3/uL (0-1.3); Neutrophils # (auto) 9.2 10 ^3/uL (1.6-8.6); Neutrophils % (auto) 71.1 % (37.0-80.0); Nucleated Red Blood Cells % 0.1 %; Red Cell Distribution Width 15.4 % (11.8-14.3)
[2023-02-02 07:36] LABS: Albumin 1.6 g/dL (3.4-5.0); Calcium 6.3 mg/dL (8.5-10.1); Potassium 3.9 mmol/L (3.5-5.1)
[2023-02-02 07:38] LABS: Hemoglobin 6.5 g/dL (13.5-17.5)
[2023-02-02 07:39] LABS: BUN/Creatinine Ratio 7.2 (10.0-20.0)
[2023-02-02 07:42] LABS: Bilirubin, Total 0.3 mg/dL (0.2-1.0); Total Protein 3.8 g/dL (6.4-8.2)
[2023-02-02] MEDS: cefTRIAXone 1GM/50ML D5W 50 ML IV SCH (09:15)
[2023-02-02] MEDS: CARVEDILOL 3.125 MG TAB PO SCH (09:15)
[2023-02-02] MEDS: predniSONE 20 MG TAB PO SCH (09:15)
[2023-02-02] MEDS: SODIUM CHLOR 0.9% PF (SALINE LOCK) 10ML VIAL/SYR IV SCH ×2 (09:16→21:33)
[2023-02-02] MEDS: cloNIDine HCL 0.1 MG TAB PO PRN (14:04)
[2023-02-02] MEDS: TAMSULOSIN HYDROCHLORIDE 0.4 MG CAP PO SCH (17:06)
[2023-02-02] MEDS ORDERED: hydrALAZINE HCL 20 MG/ML VL ONE (17:59)
[2023-02-02] MEDS ORDERED: DEXTROSE (50%) 50ML SYRG IV PRN (18:00)
[2023-02-02] MEDS ORDERED: ACCU-CHEK COMFORT CURVE STRIP VI SCH (18:00)
[2023-02-02] MEDS ORDERED: InsuLIN REG 1unit/0.01ml Soln (100units/ml) SC SCH (18:00)
[2023-02-02] MEDS ORDERED: hydrALAZINE HCL 20 MG/ML VL IV ONE (18:00)
[2023-02-02] MEDS ORDERED: TPN PER PHARMACY 0 ML IV SCH (19:00)
[2023-02-02 20:23] LABS: Hematocrit 29.8 % (41.0-53.0); Hemoglobin 9.9 g/dL (13.5-17.5)
[2023-02-02] MEDS ORDERED: AMINO ACID INFUSION IN D10W 1,000 ML IV NR (21:00)
[2023-02-02] MEDS ORDERED: DEXTROSE (50%) 50ML SYRG IV SCH (21:15)
[2023-02-02] MEDS: PANTOPRAZOLE 40 MG/10 ML VIAL INJ IV SCH (21:31)
[2023-02-02] MEDS: CARVEDILOL 12.5 MG TAB PO SCH (21:32)
[2023-02-02] MEDS: ATORVASTATIN 20 MG TAB PO SCH (21:32)
[2023-02-02] MEDS: LORazepam 2MG/ML-1ML VIAL IV PRN (21:46)
[2023-02-02] MEDS: InsuLIN REG 1unit/0.01ml Soln (100units/ml) SC SCH (23:48)
[2023-02-03] VITALS (25 sets, daily range): BP systolic 136–183; BP diastolic 59–143
[2023-02-03 04:58] LABS: Basophils # (auto) 0 10 ^3/uL (0-0.2); Basophils % (auto) 0.3 % (0.0-2.0); Eosinophils # (auto) 0 10 ^3/uL (0-0.8); Hematocrit 25.9 % (41.0-53.0); Hemoglobin 8.9 g/dL (13.5-17.5); Lymphocytes # (auto) 1.7 10 ^3/uL (0.4-5.4); Lymphocytes % (auto) 15.2 % (10.0-50.0); Mean Corpuscular Hemoglobin 29.3 pg (28.0-32.0); Mean Corpuscular Hgb Conc. 34.4 g/dL (32.0-36.0); Monocytes # (auto) 1.2 10 ^3/uL (0-1.3); Monocytes % (auto) 10.7 % (0.0-12.0); Neutrophils # (auto) 8.4 10 ^3/uL (1.6-8.6); Neutrophils % (auto) 73.8 % (37.0-80.0); Nucleated Red Blood Cells % 0.1 %; Red Blood Cells 3.05 10^6/uL (4.5-5.90); White Blood Cell 11.4 10^3/uL (4.4-10.8)
[2023-02-03 05:10] LABS: Albumin 1.8 g/dL (3.4-5.0); Calcium 6.7 mg/dL (8.5-10.1); Potassium 4.2 mmol/L (3.5-5.1)
[2023-02-03 05:15] LABS: BUN/Creatinine Ratio 7.5 (10.0-20.0); Bilirubin, Total 0.4 mg/dL (0.2-1.0); Phosphorus 4.6 mg/dL (2.5-4.90); Total Protein 4.1 g/dL (6.4-8.2)
[2023-02-03] MEDS: metroNIDAZOLE 500MG/100ML 100 ML IV SCH ×3 (05:33→22:00)
[2023-02-03] MEDS: ACCU-CHEK COMFORT CURVE STRIP VI SCH ×3 (05:33→17:25)
[2023-02-03] MEDS: InsuLIN REG 1unit/0.01ml Soln (100units/ml) SC SCH ×4 (05:43→22:08)
[2023-02-03] MEDS: ALBUTEROL SULF 2.5 MG/0.5ML(0.5%) NEB SOLN NEB SCH ×4 (06:21→18:54)
[2023-02-03] MEDS: IPRATROPIUM BROM 0.5 MG/2.5ML INH SOL NEB SCH ×4 (06:21→18:54)
[2023-02-03] MEDS ORDERED: SODIUM CHL 0.9% 1000 ML BAG XX ONE (06:45)
[2023-02-03] MEDS ORDERED: ALBUMIN 25% 100 ML IV PRN (06:45)
[2023-02-03] MEDS: PANTOPRAZOLE 40 MG/10 ML VIAL INJ IV SCH ×2 (08:50→22:43)
[2023-02-03] MEDS: predniSONE 20 MG TAB PO SCH (08:50)
[2023-02-03] MEDS: SODIUM CHLOR 0.9% PF (SALINE LOCK) 10ML VIAL/SYR IV SCH ×2 (08:50→22:00)
[2023-02-03] MEDS: cefTRIAXone 1GM/50ML D5W 50 ML IV SCH (08:50)
[2023-02-03] MEDS: CARVEDILOL 12.5 MG TAB PO SCH ×3 (08:50→22:44)
[2023-02-03] MEDS ORDERED: CALCIUM GLUC 1,000mg/50ml-NS 50 ML IV ONE (11:15)
[2023-02-03] MEDS: DEXTROSE 10% 1,000 ML IV SCH (13:14)
[2023-02-03] MEDS: cloNIDine HCL 0.1 MG TAB PO PRN (14:28)
[2023-02-03] MEDS: TAMSULOSIN HYDROCHLORIDE 0.4 MG CAP PO SCH (17:03)
[2023-02-03] MEDS: hydrALAZINE HCL 20 MG/ML VL IV PRN (17:04)
[2023-02-03] MEDS: LORazepam 2MG/ML-1ML VIAL IV PRN (19:56)
[2023-02-03] MEDS ORDERED: TPN*HIGH CONC* PER PHARMACY IV NR ×9 (20:00)
[2023-02-03] MEDS ORDERED: EPOETIN ALFA-EPBX 10,000 UNIT/1ML VIAL SC ONE (21:00)
[2023-02-03] MEDS: ATORVASTATIN 20 MG TAB PO SCH ×2 (22:00→22:44)
[2023-02-04] MEDS: LORazepam 2MG/ML-1ML VIAL IV PRN ×2 (01:16→22:10)
[2023-02-04] MEDS: MORPHINE SULFATE INJ 2 MG/ml SYRG IV PRN ×2 (04:17→09:18)
[2023-02-04 05:00] VITALS: BP 171/70
[2023-02-04 05:39] LABS: Basophils # (auto) 0 10 ^3/uL (0-0.2); Basophils % (auto) 0.1 % (0.0-2.0); Eosinophils # (auto) 0 10 ^3/uL (0-0.8); Eosinophils % (auto) 0.2 % (0.0-7.0); Lymphocytes # (auto) 1.4 10 ^3/uL (0.4-5.4); Lymphocytes % (auto) 12.4 % (10.0-50.0); Mean Corpuscular Hemoglobin 28.9 pg (28.0-32.0); Mean Corpuscular Hgb Conc. 33.6 g/dL (32.0-36.0); Mean Corpuscular Volume 86.1 fL (80.0-100.0); Monocytes # (auto) 1.1 10 ^3/uL (0-1.3); Monocytes % (auto) 9.3 % (0.0-12.0); Nucleated Red Blood Cells % 0.1 %; Red Blood Cells 3.13 10^6/uL (4.5-5.90); Red Cell Distribution Width 15.2 % (11.8-14.3); White Blood Cell 11.6 10^3/uL (4.4-10.8)
[2023-02-04] MEDS: IPRATROPIUM BROM 0.5 MG/2.5ML INH SOL NEB SCH ×3 (05:52→18:44)
[2023-02-04] MEDS: ALBUTEROL SULF 2.5 MG/0.5ML(0.5%) NEB SOLN NEB SCH ×3 (05:52→18:44)
[2023-02-04 05:53] LABS: Potassium 3.8 mmol/L (3.5-5.1)
[2023-02-04] MEDS: ACCU-CHEK COMFORT CURVE STRIP VI SCH ×4 (06:00→18:40)
[2023-02-04] MEDS: InsuLIN REG 1unit/0.01ml Soln (100units/ml) SC SCH ×3 (06:00→18:39)
[2023-02-04] MEDS: metroNIDAZOLE 500MG/100ML 100 ML IV SCH ×3 (06:00→22:10)
[2023-02-04 06:02] LABS: Albumin 1.9 g/dL (3.4-5.0); BUN/Creatinine Ratio 7.2 (10.0-20.0); Bilirubin, Total 0.3 mg/dL (0.2-1.0); Calcium 7.2 mg/dL (8.5-10.1); Magnesium 2.1 mg/dL (1.6-2.6); Phosphorus 3.5 mg/dL (2.5-4.90); Total Protein 4.1 g/dL (6.4-8.2)
[2023-02-04 09:00] VITALS: BP 165/79
[2023-02-04] MEDS: PANTOPRAZOLE 40 MG/10 ML VIAL INJ IV SCH ×2 (09:17→22:10)
[2023-02-04] MEDS: cefTRIAXone 1GM/50ML D5W 50 ML IV SCH (09:17)
[2023-02-04] MEDS: predniSONE 20 MG TAB PO SCH (09:18)
[2023-02-04] MEDS: CARVEDILOL 12.5 MG TAB PO SCH ×3 (09:19→22:13)
[2023-02-04] MEDS: cloNIDine HCL 0.1 MG TAB PO PRN ×2 (09:20→19:57)
[2023-02-04] MEDS: SODIUM CHLOR 0.9% PF (SALINE LOCK) 10ML VIAL/SYR IV SCH ×2 (12:12→22:10)
[2023-02-04] MEDS: hydrALAZINE HCL 20 MG/ML VL IV PRN (12:16)
[2023-02-04 13:00] VITALS: BP 182/81
[2023-02-04 17:00] VITALS: BP 166/79
[2023-02-04] MEDS: TAMSULOSIN HYDROCHLORIDE 0.4 MG CAP PO SCH (18:39)
[2023-02-04] MEDS ORDERED: SODIUM ACETATE IV NR ×12 (20:00)
[2023-02-04] MEDS ORDERED: FAT EMULSION30 IV NR ×12 (20:00)
[2023-02-04] MEDS ORDERED: SODIUM PHOSPHATES IV NR ×12 (20:00)
[2023-02-04] MEDS ORDERED: [UNRECOGNIZED DRUG - OTHER] IV NR ×12 (20:00)
[2023-02-04 22:00] VITALS: BP 127/60
[2023-02-04] MEDS: ATORVASTATIN 20 MG TAB PO SCH (22:10)
[2023-02-05] MEDS: ACCU-CHEK COMFORT CURVE STRIP VI SCH ×3 (00:05→11:57)
[2023-02-05] MEDS: InsuLIN REG 1unit/0.01ml Soln (100units/ml) SC SCH ×3 (00:24→11:57)
[2023-02-05] MEDS: IPRATROPIUM BROM 0.5 MG/2.5ML INH SOL NEB SCH ×4 (01:40→20:06)
[2023-02-05] MEDS: ALBUTEROL SULF 2.5 MG/0.5ML(0.5%) NEB SOLN NEB SCH ×4 (01:40→20:06)
[2023-02-05 05:00] VITALS: BP_SYST 174; BP_SYST 182; BP_DIAS 75
[2023-02-05] MEDS ORDERED: SODIUM CHL 0.9% 1000 ML BAG XX ONE (05:15)
[2023-02-05 06:05] LABS: Potassium 3.4 mmol/L (3.5-5.1)
[2023-02-05 06:11] LABS: Albumin 1.9 g/dL (3.4-5.0); BUN/Creatinine Ratio 7.9 (10.0-20.0); Bilirubin, Total 0.2 mg/dL (0.2-1.0); Calcium 7.2 mg/dL (8.5-10.1); Magnesium 2.1 mg/dL (1.6-2.6); Phosphorus 2.5 mg/dL (2.5-4.90); Total Protein 4.4 g/dL (6.4-8.2)
[2023-02-05] MEDS: metroNIDAZOLE 500MG/100ML 100 ML IV SCH ×3 (06:59→21:27)
[2023-02-05] MEDS: cefTRIAXone 1GM/50ML D5W 50 ML IV SCH (08:45)
[2023-02-05] MEDS: predniSONE 20 MG TAB PO SCH (08:46)
[2023-02-05] MEDS: CARVEDILOL 12.5 MG TAB PO SCH ×2 (08:46→21:27)
[2023-02-05] MEDS: SODIUM CHLOR 0.9% PF (SALINE LOCK) 10ML VIAL/SYR IV SCH ×2 (08:47→21:27)
[2023-02-05] MEDS: PANTOPRAZOLE 40 MG/10 ML VIAL INJ IV SCH ×2 (08:54→21:26)
[2023-02-05 09:00] VITALS: BP 142/58
[2023-02-05] MEDS ORDERED: POTASSIUM PHOSP 22MEQ(15MMOLE) in NS 100 ML IV ONE (09:30)
[2023-02-05 13:00] VITALS: BP 130/67
[2023-02-05 17:00] VITALS: BP 156/69
[2023-02-05] MEDS: TAMSULOSIN HYDROCHLORIDE 0.4 MG CAP PO SCH (17:51)
[2023-02-05] MEDS ORDERED: FAT EMULSION30 IV NR ×12 (20:00)
[2023-02-05] MEDS ORDERED: [UNRECOGNIZED DRUG - OTHER] IV NR ×12 (20:00)
[2023-02-05] MEDS ORDERED: SODIUM ACETATE IV NR ×12 (20:00)
[2023-02-05] MEDS ORDERED: SODIUM PHOSPHATES IV NR ×12 (20:00)
[2023-02-05] MEDS ORDERED: EPOETIN ALFA-EPBX 10,000 UNIT/1ML VIAL SC ONE (21:00)
[2023-02-05] MEDS: ATORVASTATIN 20 MG TAB PO SCH (21:26)
[2023-02-05] MEDS: LORazepam 2MG/ML-1ML VIAL IV PRN (23:11)
[2023-02-05] MEDS: cloNIDine HCL 0.1 MG TAB PO PRN (23:30)
[2023-02-06] MEDS: hydrALAZINE HCL 20 MG/ML VL IV PRN ×2 (04:59→12:47)
[2023-02-06 05:00] VITALS: BP 211/86
[2023-02-06] MEDS: metroNIDAZOLE 500MG/100ML 100 ML IV SCH ×2 (05:28→14:00)
[2023-02-06 06:00] VITALS: BP 139/72
[2023-02-06 06:24] LABS: Potassium 3.8 mmol/L (3.5-5.1)
[2023-02-06] MEDS: ALBUTEROL SULF 2.5 MG/0.5ML(0.5%) NEB SOLN NEB SCH ×2 (06:24→12:24)
[2023-02-06] MEDS: IPRATROPIUM BROM 0.5 MG/2.5ML INH SOL NEB SCH ×2 (06:24→12:24)
[2023-02-06 06:32] LABS: BUN/Creatinine Ratio 8.5 (10.0-20.0); Bilirubin, Total 0.2 mg/dL (0.2-1.0); Calcium 7.4 mg/dL (8.5-10.1); Magnesium 2.1 mg/dL (1.6-2.6); Phosphorus 2.2 mg/dL (2.5-4.90); Total Protein 4.5 g/dL (6.4-8.2)
[2023-02-06] MEDS: predniSONE 20 MG TAB PO SCH (09:07)
[2023-02-06] MEDS: cefTRIAXone 1GM/50ML D5W 50 ML IV SCH (09:07)
[2023-02-06] MEDS: CARVEDILOL 12.5 MG TAB PO SCH (09:07)
[2023-02-06] MEDS: PANTOPRAZOLE 40 MG/10 ML VIAL INJ IV SCH (09:07)
[2023-02-06] MEDS: SODIUM CHLOR 0.9% PF (SALINE LOCK) 10ML VIAL/SYR IV SCH (09:08)
[2023-02-06 09:23] VITALS: BP 171/80
[2023-02-06 09:36] VITALS: BP 171/80
[2023-02-06] MEDS ORDERED: InsuLIN REG 1unit/0.01ml Soln (100units/ml) IV ONE (11:15)
[2023-02-06 12:50] VITALS: BP 182/74
[2023-02-06 13:01] VITALS: BP 182/74
== END 2023-02-06 14:35 | disposition hospice, home (50) | DRG 871 ==
LOC: EDUNIT# 10:23 → ER 10:23 → EDBD 10:23 → TELE 19:47 → TELE-WESTW 01-30 22:18 → TELE-EAST 01-30 22:25 → DOU IN ICU 02-01 14:25 → TELE-EAST 02-03 18:48
PROVIDERS: ADMIT Nurse Practitioner Family; ATTEND Family Medicine
PROC: 30233N1 Transfusion of Nonautologous Red Blood Cells into Peripheral Vein, Percutaneous Approach (ICD-10-PCS; 2023-01-29)
PROC: 5A1D70Z Performance of Urinary Filtration, Intermittent, Less than 6 Hours Per Day (ICD-10-PCS; principal; 2023-01-31)
PROC: 5A1D70Z Performance of Urinary Filtration, Intermittent, Less than 6 Hours Per Day (ICD-10-PCS; 2023-02-03)
PROC: 5A1D70Z Performance of Urinary Filtration, Intermittent, Less than 6 Hours Per Day (ICD-10-PCS; 2023-02-05)
DX: A41.9 Sepsis, unspecified organism (principal); K57.21 Diverticulitis of large intestine with perforation and abscess with bleeding; N18.6 End stage renal disease; R65.21 Severe sepsis with septic shock; I13.2 Hypertensive heart and chronic kidney disease with heart failure and with stage 5 chronic kidney disease, or end stage renal disease; J44.1 Chronic obstructive pulmonary disease with (acute) exacerbation; C18.7 Malignant neoplasm of sigmoid colon; I48.91 Unspecified atrial fibrillation; D50.0 Iron deficiency anemia secondary to blood loss (chronic); E78.00 Pure hypercholesterolemia, unspecified; E83.51 Hypocalcemia; E87.5 Hyperkalemia; E16.2 Hypoglycemia, unspecified; I50.9 Heart failure, unspecified; R09.02 Hypoxemia; Z79.01 Long term (current) use of anticoagulants; Z87.891 Personal history of nicotine dependence; Z99.2 Dependence on renal dialysis
CPT/HCPCS: 36415; 36569; 71045; 74176; 80048; 80053; 81001; 82378; 82962; 83690; 83735; 84100; 84478; 85007; 85014; 85018; 85025; 85027; 85610; 85730; 86850; 86900; 86901; 86920; 87040; 87081; 87086; 90935; 94640; 96361; 96365; 96367; 97110; 97116; 97163; 97530; 99291; C9113; G0378; J0696; J1815; J3480; J3490; J7042